=== PATIENT | female | born 1980 | race Caucasian/White ===

== ENCOUNTER 2024-08-09 08:09 | Day surgery (SDC) | payer OTHER ==
[2024-08-05 17:14] VITALS: BMI 25.7
[2024-08-09 09:39] VITALS: PULSE 81; RESP 16; TEMP 97.3
[2024-08-09 10:08] VITALS: BP 109/65
== END 2024-08-09 10:10 | disposition home or self-care (01) ==
LOC: FASU-ENDO 08:09
PROVIDERS: ATTEND Internal Medicine Gastroenterology
PROC: 0DJD8ZZ Inspection of Lower Intestinal Tract, Via Natural or Artificial Opening Endoscopic (ICD-10-PCS; principal; 2024-08-09 09:13)
DX: Z12.11 Encounter for screening for malignant neoplasm of colon (principal); K64.1 Second degree hemorrhoids
CPT/HCPCS: 81025